=== PATIENT | male | born 1960 | race Caucasian/White ===

== ENCOUNTER 2017-02-14 13:29 | Inpatient (IN) ==
--- NOTE | 2017-02-13 22:03 | Discharge Summary ---
<CrystalLinda batistaEvon L - Last Filed: 02/15/17 12:15> Date of Encounter: 02/15/17 - Discharge Diagnosis (1) Arthritis of left hip Priority: Primary Status: Chronic (2) Status post total hip replacement, left Priority: Primary Status: Acute (3) HTN (hypertension) Priority: Secondary Status: Chronic Qualifiers: Hypertension type: essential hypertension Qualified Code(s): I10 - Essential (primary) hypertension (4) HLD (hyperlipidemia) Priority: Secondary Status: Chronic Qualifiers: Hyperlipidemia type: unspecified Qualified Code(s): E78.5 - Hyperlipidemia , unspecified (5) Obesity Priority: Secondary Status: Chronic Qualifiers: Obesity type: unspecified obesity type Obesity classification: unspecified obesity classification Serious obesity comorbidity presence: unspecified whether serious comorbidity present Qualified Code(s): E66.9 - Obesity, unspecified (6) Chronic pain Priority: Secondary Status: Chronic Comments: Will continue chronic pain medication - Oxycodone 10mg q 6 hours. Continue Tramadol 100mg daily. Added Mobic and Tylenol. Add Lidoderm patch Qualifiers: Chronic pain type: chronic pain syndrome Qualified Code(s): G89.4 - Chronic pain syndrome (7) History of infection Priority: Secondary Status: Chronic - Discharge Medications Prescriptions: Doxycycline 100 mg PO BID #14 capsule levoFLOXacin [Levofloxacin] 750 mg PO DAILY #7 tablet Home Medications: Aspirin Enteric Coated [Aspirin EC] 325 mg PO DAILY #21 tablet. 02/13/17 [Rx] Amlodipine Besylate 10 mg PO DAILY 02/14/17 [History] Lidocaine Patch [Lidoderm 5% patch] 1 each TP DAILY #60 adh..patch 02/14/17 [Rx] Lovastatin 10 mg PO HS 02/14/17 [History] Metoprolol [Lopressor] 50 mg PO BID 02/14/17 [History] Montelukast [Singulair] 10 mg PO HS 02/14/17 [History] Oxycodone HCl 10 mg PO Q6H PRN 02/14/17 [History] Quinapril/Hydrochlorothiazide [Accuretic 20-25 mg Tablet] 1 tab PO DAILY [History] Doxycycline 100 mg PO BID #14 capsule 02/15/17 [Rx] levoFLOXacin [Levofloxacin] 750 mg PO DAILY #7 tablet 02/15/17 [Rx] Allergies/Adverse Reactions: 3 Allergy/AdvReac Type Severity Reaction Status Date / Time optifoam dressing Allergy Blister Uncoded 02/14/17 14:05 Primary care physician: Amy Jean MD - Patient Status Disposition: Home, Self-Care Condition: Good - Discharge Instructions Follow Up With: Germán Beatty MD [Partnered Physician] - 03/16/17 3:40 pm Evon Spencer PAC [Physician Clinical Phlebotomist] - 02/24/17 8:00 am (Second followup (staple removal) 03/04/17 @ 8:45am) Additional Instructions: Discharge Instructions: Total Hip Replacement Please call [facility] ([phone]), your Primary Care Physician, or report to the Emergency Room if you have any of the following symptoms: Nausea, vomiting, fever greater that 101.5, swelling, chest pain, shortness of breath, increased pain/redness/drainage/odor for your incision site, numbness/ tingling, or any other concerning symptoms. ACTIVITY:Weight-bearing as tolerated for 8 weeks with hip dislocation precautions that physical therapy taught you. You may progress as tolerated under the guidance of your physical therapist. You do not need to sleep with a pillow between your legs. You can also seep on the operative side or on your stomach. MEDICATIONS: Upon discharge resume your home medications. Take all the medications as prescribed. Take a stool softener if taking narcotic pain medications. Stool softeners are only effective if you drink enough fluids. Drink 6-8 glass of water or fluids a day, unless this is not allowed for another health problem. Despite using stool softeners, if you haven't had a bowel movement in 3 days, please switch to a gentle laxative. Gentle laxatives are sold over the counter. You should have a bowel movement within 24 hours, if not call the office. You will be discharged from the hospital with a prescription for pain medication. You are encouraged to decrease the use of narcotic pain medication as tolerated. Should you require a refill, please call the office. [facility] prescribes narcotic pain medication for only 4-6 weeks after surgery. If you require pain medication beyond this time period, you may be referred to your Primary Care Physician or to the Pain Clinic for further evaluation. Plan ahead for refills on pain medication as many narcotics either need to be picked up at the office or mailed. It is best to call 48-72 hours in advance of needing a prescription refill so you don't run out of medication. To help control the post-operative pain, you may take NSAIDs (Aleve,Advil, Motrin, ibuprofen, naprosyn) or Tylenol as prescribed on the bottle in addition to the pain medication. ANTICOAGULATION (blood thinners): Continue your Aspirin, Lovenox or Coumadin as prescribed to help prevent a blood clot in the leg or in the lungs. As long as your incision remains dry and you tolerate the NSAIDs (Aleve, Advil, Motrin, Ibuprofen, Naprosyn), it is OK to use the NSAIDS while you are taking your anticoagulation medication. Should your incision start to drain, stop the NSAID and contact our office. Common symptoms of blood clot in the legs include: localized pain, swelling, calf tenderness, redness or discoloration of the skin. Blood clot in the lung symptoms include: shortness of breath, rapid pulse, sweating, and chest pain that worsens with deep breathing, coughing up blood, lightheadedness, feelings of anxiety. If you experience any of these symptoms notify your physician immediately, go to the emergency room, or if having trouble breathing, call 911. WOUND CARE: Leave the dressing on for 7 to 10days. You may change the dressing if it is saturated greater than 50%. Do not get the dressing wet at anytime. Wash your hands with antibacterial soap, rinse and dry prior to any wound care. If you have mikel the visiting nurse or rehab facility can remove the stapes 10-14 days after surgery and place steri-strips across the wound. Leave the steri-strips in place until they fall off on their own. You may let water from the shower run on top of the steri-strips. If you do not have a visiting nurse or rehab facility, you will need to return to the office at 10-14 days for the mikel to be removed. If you have itching or redness around the dressing call the office. FOLLOW-UP: Please follow up with your surgeon in the orthopedic clinic in 6 weeks from the day of surgery. If you have mikel that need to be removed, you will need to come back to the office in 10-14 days from the day of surgery. - Hospital Course Hospital course: Mr. Lee is a 56 year old male - Time Spent with Patient Total time spent providing and/or coordinating discharge services: <Germán Beatty Billy - Last Filed: 02/16/17 06:51> Date of Encounter: 02/16/17 Time of Encounter: 06:50 - Discharge Diagnosis (1) Morbid obesity with BMI of 45.0-49.9, adult Priority: Secondary Status: Chronic (2) Arthritis of left hip Priority: Primary Status: Chronic (3) Status post total hip replacement, left Priority: Primary Status: Acute (4) HTN (hypertension) Priority: Secondary Status: Chronic Qualifiers: Hypertension type: essential hypertension Qualified Code(s): I10 - Essential (primary) hypertension (5) HLD (hyperlipidemia) Priority: Secondary Status: Chronic Qualifiers: Hyperlipidemia type: unspecified Qualified Code(s): E78.5 - Hyperlipidemia , unspecified (6) Chronic pain Priority: Secondary Status: Chronic Qualifiers: Chronic pain type: chronic pain syndrome Qualified Code(s): G89.4 - Chronic pain syndrome (7) History of infection Priority: Secondary Status: Chronic Comments: Right total hip replacement Primary care physician: Amy Jean MD - Patient Status Functional capacity at discharge: uses cane/walker Overall status at discharge: patient is progressing back to baseline - Hospital Course Hospital course: Mr. Lee is a 56 year old male Status post left total hip replacement patient with history of infected right hip replacement on IV antibiotics while in the hospital. Discharge on by mouth antibiotics.The patient had an uneventful postoperative course. They received antibiotics and physical therapy and were discharged in stable condition. There will follow-up in the office in 2 weeks. - Time Spent with Patient Total time spent providing and/or coordinating discharge services:
[2017-02-14] MEDS ORDERED: Vancomycin 2,000 MG in D5% in Water 250 ML IVPB ONE (13:51)
[2017-02-14] MEDS ORDERED: Lidocaine -MPF 1% 2 ML VIAL ID ONE (13:51)
--- NOTE | 2017-02-14 13:53 | History & Physical Report ---
Date of Encounter: 02/14/17 Time of Encounter: 13:53 24 Hour HP Update - Instructions Instructions: If the History and Physical is less than 30 days old and was completed prior to A.M. admission and or procedure and has NOT been updated on calendar day of procedure please complete this update prior to performing procedure. - Update Patient reports changes in Medical Condition: No Changes in examination, assessment, or condition: No Changes in Medication: No Preop tests/diagnostics Reviewed: Yes Surgery Remains Indicated: Yes Consent for Planned Operative Procedure(s) Verified: Yes - Pre-Operative Checklist Preoperative Checklist Indicated: No Prophylactic Antibiotic Ordered: Yes Is VTE Prophylaxis Indicated?: Yes
[2017-02-14] MEDS ORDERED: Ringers Solution, Lactated 1,000 ML IVC SCH ×2 (14:00→21:10)
[2017-02-14] MEDS ORDERED: VANCOMYCIN IVPB ONE (14:15)
[2017-02-14] MEDS ORDERED: D10 IVPB ONE (14:15)
[2017-02-14] MEDS ORDERED: Vancomycin 2,000 MG in D5% in Water 500 ML IVPB ONE (14:15)
[2017-02-14] MEDS ORDERED: WATER IVPB ONE (14:15)
--- NOTE | 2017-02-14 15:52 | Anesthesia Evaluation PreOp ---
Date of Encounter: 02/14/17 Time of Encounter: 15:51 - Past History Planned Operation: Left Total Hip Arthroplasty Cardiac History: HTN, Hyperlipidemia Pulmonary History: Denies Any Significant HX, Former smoker (quit 10+ years ago) LEGAL ARBITRATOR History: Other (Neuropathic Pain) Other Medical History: Denies Any Significant HX, Other (Lumbar DJD) Anesthesia History: No Prior Anesthetic Complications, Past Anesthesia (Right hip I&D, R. THR, Multiple Right Hip Sx) Alcohol Use: rarely Drug use: none Medications and Allergies Aspirin Enteric Coated [Aspirin EC] 325 mg PO DAILY #21 tablet. 02/13/17 [Rx] Amlodipine Besylate [Amlodipine Besylate] 10 mg PO DAILY 02/14/17 [History] Lovastatin [Lovastatin] 10 mg PO HS 02/14/17 [History] Metoprolol [Lopressor] 50 mg PO BID 02/14/17 [History] Montelukast [Singulair] 10 mg PO HS 02/14/17 [History] Oxycodone HCl [Oxycodone HCl] 10 mg PO Q6H PRN 02/14/17 [History] Quinapril/Hydrochlorothiazide [Accuretic 20-25 mg Tablet] 1 tab PO DAILY [History] 3 Allergy/AdvReac Type Severity Reaction Status Date / Time optifoam dressing Allergy Blister Uncoded 02/14/17 14:05 - Meds/Allergy Pre-op Review Medications Reviewed: Yes Allergies Reviewed: Yes Beta Blockers on Current Med List: Yes If Beta Blockers taken, Date/Time (Last Dose taken): 08:30 02/14/17 Anesthesia Results - Labs Laboratory Tests 01/25/17 01/25/17 01/25/17 10:03 10:03 10:03 WBC 7.5 Hgb 13.7 Hct 41.5 Plt Count 286 INR 1.2 Sodium 139 Potassium 3.7 Chloride 101 Carbon Dioxide 27 BUN 8 Creatinine 0.80 - Imaging EKG: image reviewed (SB) Anesthesia Exam Height: 5'9'' Weight: 305# NPO (# of Hours): > 8 hrs Pain Scale: 0 Pain Scale Used: Numeric (1 - 10) - HEENT Pupil (Motor): Pupils equal, EOMI Mallampati: III Teeth: Normal Oral Opening: Greater than 3 - LEGAL ARBITRATOR LOC: Oriented LEGAL ARBITRATOR Motor: Normal RUE, Normal LUE, Normal RLE, Normal LLE, Normal Face LEGAL ARBITRATOR Sensory: Normal: RUE, LUE, RLE, LLE, Face - Cardiac Rhythm: Regular Murmur: None JVD: No Carotid Bruit: No - Pulmonary Breath Sounds: bilateral Clear Respiratory Effort: Symmetrical Anesthesia Assess/Plan ASA Score: 3 Modified Burton Scale for Level of Consciousness: Cooperative, oriented, and tranquil Anesthetic Plan: General, Regional (REFUSED Nerve Block) Monitoring Plan: Standard Monitors Recovery Plan: PACU
[2017-02-14] MEDS ORDERED: Acetaminophen IV 1,000 MG/100 ML INFUS..BTL ONE (16:39)
[2017-02-14] MEDS ORDERED: *HR* FentaNYL (PF) 100 MCG/2 ML VIAL ONE (16:41)
[2017-02-14] MEDS ORDERED: *HR* Propofol 200 MG/20 ML VIAL IVP ONE ×2 (16:41→16:44)
[2017-02-14] MEDS ORDERED: *HR* Midazolam HCl 2 MG/2 ML VIAL ONE (16:41)
[2017-02-14] MEDS ORDERED: Lidocaine -MPF 2% 2 ML VIAL ONE (16:43)
[2017-02-14] MEDS ORDERED: *HR* Succinylcholine 200 MG/10 ML VIAL IVP ONE (16:45)
[2017-02-14] MEDS ORDERED: Lidocaine -MPF 4% 5 ML AMPUL ONE (16:53)
[2017-02-14] MEDS ORDERED: *HR* Magnesium Sulfate 1 GM/2 ML VIAL ONE (16:54)
[2017-02-14] MEDS ORDERED: Ondansetron 4 MG/2 ML VIAL ONE (17:19)
[2017-02-14] MEDS ORDERED: Dexamethasone 4 MG/ML VIAL ONE (17:19)
[2017-02-14] MEDS ORDERED: EPHEDrine 50 MG/ML VIAL ONE (17:23)
[2017-02-14] MEDS ORDERED: *HR* Enoxaparin 30 MG/0.3 ML SYRINGE SQ SCH (18:00)
[2017-02-14] MEDS ORDERED: *HR* Promethazine 25 MG/ML VIAL IVP PRN (18:04)
--- NOTE | 2017-02-14 18:09 | Orthopedic Operative Note ---
Date of procedure: 02/14/17 Pre-op diagnosis: Left hip arthritis Post-op diagnosis: same Procedure: Procedure: Left Total Hip Replacment Estimated blood loss: 500 cc Hardware: Metal and polyethylene replacement. Biomet DM Cup:60 G7 fin cup Femoral size13 echo full profile lateralized stem Head: 9 head with Mercedes Procedural Notes: Grade 4 arthritic changes femoral head acetabular socket. Operative procedure: The patient was brought to the operating room and placed on the operating room table. After general anesthesia was administered the patient was placed in the lateral decubitus position with the operative leg up. All pressure points were padded appropriately and the head was stabilized in the neutral position. The operative extremity was prepped and draped in the sterile surgical fashion patient received IV antibiotic prior to skin incision. A standard posterior approach is made to the operative hip, the incision was made through the skin and subcutaneous tissue hemostasis was obtained with Bovie cautery. Using careful sharp dissection the fascia was identified and incised exposing the external rotators. The external rotators were released off the greater trochanter and tagged with #2 FiberWire suture. The capsule was T'd open and the hip was brought into internal rotation. Patient noted to have grade 4 arthritic changes femoral head. The femoral neck cut was made at the appropriate level. An anterior capsulotomy was performed for the anterior retractor. Soft tissues removed from the acetabulum. Patient noted to have grade 4 arthritic changes acetabulum. Acetabulum was first reamed medially, and then reamed in 15 degrees of anteversion and 45 degrees off the horizontal. It was reamed up to the appropriate size 60. The appropriate-sized 60 acetabular cup was impacted in place in 15 degrees of anteversion and 45 degrees off the horizontal. This had good fit and fixation. The hip was brought back in to internal rotation and prepared with the box icer followed by the canal finder followed by broaching process in 20 degrees anteversion. It was broached up to the appropriate size 13. The femoral implant was impacted in place in 20 degrees of anteversion. Trial reduction found the hip to be stable with 9 head and Mercedes. The trials were removed and the real implants were impacted in place. The hip was reduced, patient had apparent equal leg lengths. The hip had excellent stability with forward flexion to 90 degrees adduction of 30 degrees and internal rotation of 60 degrees. The hip had no shuck. The hips after 2 minutes with a Betadine saline solution. It was irrigated out with 2 L of pulse irrigation. PA closed the knee. Fascia was closed with a running #2 PDS suture. The deep tissue was irrigated and closed deep with #1 PDS suture superficially with 0 PDS suture and skin was closed with Dermabond and skin mikel. The patient was placed in a sterile dressing and abduction pillow. The patient was extubated and transferred to the recovery room in stable condition. Anesthesia: GETA Surgeon: Germán Beatty Condition: stable Disposition: PACU
[2017-02-14] MEDS ORDERED: Ketorolac 30 MG/ML VIAL ONE (18:28)
[2017-02-14] MEDS ORDERED: *HR* Morphine 10 MG/ML VIAL ONE (18:29)
[2017-02-14] MEDS ORDERED: *HR* HYDROmorphone 2 MG/ML SYRINGE ONE (18:38)
[2017-02-14] MEDS: *HR* HYDROmorphone (PF) 1 MG/ML SYRINGE IVP PRN ×5 (19:02→22:36)
[2017-02-14 19:16] LABS: Hemoglobin 13.2 g/dL (12.9-16.9)
--- NOTE | 2017-02-14 19:51 | Anesthesia Evaluation Post Op ---
Date of Encounter: 02/14/17 Time of Encounter: 19:50 - Vital Signs Vital Signs: Vital Signs/O2 Sat/Glucose, Most Current Temp Pulse Resp BP Pulse Ox 02/14/17 19:31 97.5 F L 78 20 140/91 93 02/14/17 19:21 97.7 F 79 20 150/100 94 02/14/17 19:11 84 20 144/98 96 02/14/17 19:01 84 20 139/99 94 02/14/17 18:51 87 20 125/92 94 02/14/17 18:41 98.6 F 84 18 133/84 94 - Lungs Lungs: Clear Ascult./Percussion - Airway Airway: Non-obstructed - Cardiovascular Regular Rate - Mental Status Mental Status: Alert & Oriented, Answers Appropriately - Pain Pain Scale: 5 - Nausea Vomiting Nausea Vomiting: Not Present - Hydration Hydration: Ice chips - Discharge PostOp Status: Transfer Patient to floor
[2017-02-14] MEDS ORDERED: Naloxone 0.4 MG/ML INJ IVP PRN (21:10)
[2017-02-14] MEDS ORDERED: Sennosides 8.6 MG TABLET PO PRN (21:10)
[2017-02-14] MEDS ORDERED: *HR* OxyCODONE Immed Rel 5 MG TABLET PO PRN (21:10)
[2017-02-14] MEDS ORDERED: MOM Conc 10 ML UD.LIQ PO PRN (21:10)
[2017-02-14] MEDS ORDERED: Temazepam 15 MG CAPSULE PO PRN (21:10)
[2017-02-14] MEDS ORDERED: Ondansetron 4 MG/2 ML VIAL IVP PRN (21:10)
[2017-02-14] MEDS: Ascorbic Acid 500 MG TABLET PO SCH (22:42)
[2017-02-15] MEDS: *HR* OxyCODONE Immed Rel 5 MG TABLET PO PRN ×4 (05:38→20:46)
[2017-02-15] MEDS: *HR* Enoxaparin 30 MG/0.3 ML SYRINGE SQ SCH ×2 (05:38→18:15)
[2017-02-15] MEDS: Vancomycin 2,000 MG in D5% in Water 500 ML IVPB SCH ×2 (06:44→18:15)
--- NOTE | 2017-02-15 06:53 | Orthopedics Progress Note ---
Date of Encounter: 02/15/17 Time of Encounter: 06:53 - Assessment and Plan (1) Morbid obesity with BMI of 45.0-49.9, adult Current Visit: Yes Status: Chronic (2) Arthritis of left hip Current Visit: Yes Status: Chronic (3) Status post total hip replacement, left Current Visit: Yes Status: Acute (4) HTN (hypertension) Current Visit: Yes Status: Chronic Qualifiers: Hypertension type: essential hypertension Qualified Code(s): I10 - Essential (primary) hypertension (5) HLD (hyperlipidemia) Current Visit: Yes Status: Chronic Qualifiers: Hyperlipidemia type: unspecified Qualified Code(s): E78.5 - Hyperlipidemia , unspecified (6) Chronic pain Current Visit: Yes Status: Chronic Qualifiers: Chronic pain type: chronic pain syndrome Qualified Code(s): G89.4 - Chronic pain syndrome (7) History of infection Current Visit: Yes Status: Chronic Subjective Interval history: Patient was seen this morning doing well without complaints. Afebrile vital signs stable. Operative extremity: Neurovascularly intact Dressing clean dry and intact Calves nontender Assessment and plan: Continue with postoperative care Objective Vital signs: Vital Signs Temp Pulse Resp BP Pulse Ox 02/15/17 06:36 98.8 F 86 96 113/75 02/15/17 05:18 98.6 F 108 14 122/75 96 02/15/17 00:06 98.5 F 110 17 106/71 95 02/14/17 22:55 98.3 F 110 18 114/75 95 02/14/17 22:39 98.1 F 100 17 109/71 95 02/14/17 21:30 98.7 F 93 14 119/78 95 02/14/17 20:22 82 20 136/80 94 02/14/17 20:12 75 18 135/85 97 02/14/17 20:02 97.5 F L 74 18 134/81 100 02/14/17 19:51 78 20 137/88 94 02/14/17 19:41 76 20 138/83 95 02/14/17 19:31 97.5 F L 78 20 140/91 93 02/14/17 19:21 97.7 F 79 20 150/100 94 02/14/17 19:11 84 20 144/98 96 02/14/17 19:01 84 20 139/99 94 02/14/17 18:51 87 20 125/92 94 02/14/17 18:41 98.6 F 84 18 133/84 94 Intake and Output 02/14/17 02/14/17 02/15/17 15:59 23:59 07:59 Intake Total 100 / 100 800 / 800 Output Total 500 / 500 1550 / 1550 Balance -400 / -400 -750 / -750 Intake: Oral 100 / 100 800 / 800 Output: Urine 0 / 0 1550 / 1550 Estimated Blood Loss 500 / 500 Other: Weight 138.346 kg 146.964 kg Patient Weight 02/15/17 23:59 Weight 146.964 kg - Labs CBC & BMP: 02/14/17 19:05 - VTE Documentation of Mechanical Device: Venous foot pump, device Consult Discharge Plan - Plan Referrals: Amy Jean MD [Primary Care Provider] -
[2017-02-15] MEDS ORDERED: Vancomycin 1,000 MG VIAL IVPB SCH (07:00)
[2017-02-15 08:20] LABS: Hematocrit 35.8 % (37.5-50.1); Hemoglobin 12.1 g/dL (12.9-16.9)
[2017-02-15] MEDS: Ascorbic Acid 500 MG TABLET PO SCH ×2 (08:29→18:15)
[2017-02-15] MEDS: Multivit/Ca/Min/Fe/FA 1 TAB TABLET PO SCH (08:29)
[2017-02-15] MEDS: amLODIPine 5 MG TABLET PO SCH (08:29)
[2017-02-15] MEDS: hydroCHLOROthiazide 25 MG TABLET PO SCH (08:30)
[2017-02-15 08:39] LABS: BUN/Creatinine Ratio 9 (6-26); Blood Urea Nitrogen 8 mg/dL (8-26); Calcium 9.1 mg/dL (8.6-10.8); Carbon Dioxide 22 mEq/L (19-29); Chloride 100 mEq/L (98-109); Glucose 236 mg/dL (70-99); Osmolality,Calculated 286 (280-300); Potassium 3.6 mEq/L (3.5-4.5); Sodium 135 mEq/L (136-145); eGFR For African Americans > 60 (> 60); eGFR For Non-African Americans > 60 (> 60)
--- NOTE | 2017-02-15 12:15 | Event Note ---
Date of Encounter: 02/15/17 Time of Encounter: 12:13 PCR - Left THR 02/15/17 - POD#1 Patient seen at bedside. Cormorbidities: Obesity, HTN, HLD, Chronic pain, History of Right THR/infection Labs: stable Pain control: adequate - Chronic pain *No pain meds at discharge. Oxycodone 10 q 6 hours Tramadol 100mg daily Participating in PT. All questions and concerns addressed. Educated on use of incentive spirometer, ambulation, and hydration. Patient educated on post-operative restrictions and care. Addressed: Pain - No pain meds at discharge; Added Mobic 15mg daily, with Lidoderm patch - printed and ERx'ed Post-operative prophylactic antibiotics: Levaquin 750mg daily, Doxycycline 100mg BID - 7 days post-op per D/C plan:. Home - 02/16/17.
[2017-02-16] MEDS: *HR* OxyCODONE Immed Rel 5 MG TABLET PO PRN ×3 (00:38→11:16)
[2017-02-16] MEDS: *HR* HYDROmorphone (PF) 1 MG/ML SYRINGE IVP PRN ×2 (01:59→09:29)
[2017-02-16] MEDS: *HR* Enoxaparin 30 MG/0.3 ML SYRINGE SQ SCH (06:01)
--- NOTE | 2017-02-16 06:51 | Orthopedics Progress Note ---
Date of Encounter: 02/16/17 Time of Encounter: 06:51 - Assessment and Plan (1) Morbid obesity with BMI of 45.0-49.9, adult Current Visit: Yes Status: Chronic (2) Arthritis of left hip Current Visit: Yes Status: Chronic (3) Status post total hip replacement, left Current Visit: Yes Status: Acute (4) HTN (hypertension) Current Visit: Yes Status: Chronic Qualifiers: Hypertension type: essential hypertension Qualified Code(s): I10 - Essential (primary) hypertension (5) HLD (hyperlipidemia) Current Visit: Yes Status: Chronic Qualifiers: Hyperlipidemia type: unspecified Qualified Code(s): E78.5 - Hyperlipidemia , unspecified (6) Chronic pain Current Visit: Yes Status: Chronic Qualifiers: Chronic pain type: chronic pain syndrome Qualified Code(s): G89.4 - Chronic pain syndrome (7) History of infection Current Visit: Yes Status: Chronic Subjective Interval history: Patient was seen this morning doing well without complaints. Afebrile vital signs stable. Operative extremity: Neurovascularly intact Dressing clean dry and intact Calves nontender Assessment and plan: Continue with postoperative care Hematocrit 35 discharged today Objective Vital signs: Vital Signs Temp Pulse Resp BP Pulse Ox 02/16/17 06:32 98.0 F 74 18 116/73 98 02/16/17 00:56 98.6 F 76 18 114/77 96 02/15/17 20:30 98.5 F 78 17 116/74 98 02/15/17 15:21 98.3 F 67 18 98/61 98 02/15/17 11:23 98.0 F 77 20 122/76 97 Intake and Output 02/15/17 02/15/17 02/16/17 15:59 23:59 07:59 Intake Total 610 / 610 700 / 700 800 / 800 Output Total 900 / 900 1275 / 1275 1525 / 1525 Balance -290 / -290 -575 / -575 -725 / -725 Intake: IV Fluids 250 / 250 500 / 500 Vancocin 2,000 MG In Dextrose 5 250 / 250 500 / 500 % 500 ML @ 250 mls/hr IVPB Q12H PATY Rx#:[id number] Oral 360 / 360 200 / 200 800 / 800 Output: Urine 900 / 900 1275 / 1275 1525 / 1525 Other: Meal Lunch Percent of Meal Consumed 90% - Labs CBC & BMP: 02/15/17 07:40 02/15/17 07:40 Labs: Abnormal lab results Hgb 12.1 g/dL (12.9-16.9) L 02/15/17 07:40 Hct 35.8 % (37.5-50.1) L 02/15/17 07:40 Sodium 135 mEq/L (136-145) L 02/15/17 07:40 Glucose 236 mg/dL (70-99) H 02/15/17 07:40 - VTE Documentation of Mechanical Device: Venous foot pump, device Consult Discharge Plan - Plan Additional Instructions: Discharge Instructions: Total Hip Replacement Please call [facility] ([phone]), your Primary Care Physician, or report to the Emergency Room if you have any of the following symptoms: Nausea, vomiting, fever greater that 101.5, swelling, chest pain, shortness of breath, increased pain/redness/drainage/odor for your incision site, numbness/ tingling, or any other concerning symptoms. ACTIVITY:Weight-bearing as tolerated for 8 weeks with hip dislocation precautions that physical therapy taught you. You may progress as tolerated under the guidance of your physical therapist. You do not need to sleep with a pillow between your legs. You can also seep on the operative side or on your stomach. MEDICATIONS: Upon discharge resume your home medications. Take all the medications as prescribed. Take a stool softener if taking narcotic pain medications. Stool softeners are only effective if you drink enough fluids. Drink 6-8 glass of water or fluids a day, unless this is not allowed for another health problem. Despite using stool softeners, if you haven't had a bowel movement in 3 days, please switch to a gentle laxative. Gentle laxatives are sold over the counter. You should have a bowel movement within 24 hours, if not call the office. You will be discharged from the hospital with a prescription for pain medication. You are encouraged to decrease the use of narcotic pain medication as tolerated. Should you require a refill, please call the office. [facility] prescribes narcotic pain medication for only 4-6 weeks after surgery. If you require pain medication beyond this time period, you may be referred to your Primary Care Physician or to the Pain Clinic for further evaluation. Plan ahead for refills on pain medication as many narcotics either need to be picked up at the office or mailed. It is best to call 48-72 hours in advance of needing a prescription refill so you don't run out of medication. To help control the post-operative pain, you may take NSAIDs (Aleve,Advil, Motrin, ibuprofen, naprosyn) or Tylenol as prescribed on the bottle in addition to the pain medication. ANTICOAGULATION (blood thinners): Continue your Aspirin, Lovenox or Coumadin as prescribed to help prevent a blood clot in the leg or in the lungs. As long as your incision remains dry and you tolerate the NSAIDs (Aleve, Advil, Motrin, Ibuprofen, Naprosyn), it is OK to use the NSAIDS while you are taking your anticoagulation medication. Should your incision start to drain, stop the NSAID and contact our office. Common symptoms of blood clot in the legs include: localized pain, swelling, calf tenderness, redness or discoloration of the skin. Blood clot in the lung symptoms include: shortness of breath, rapid pulse, sweating, and chest pain that worsens with deep breathing, coughing up blood, lightheadedness, feelings of anxiety. If you experience any of these symptoms notify your physician immediately, go to the emergency room, or if having trouble breathing, call 911. WOUND CARE: Leave the dressing on for 7 to 10days. You may change the dressing if it is saturated greater than 50%. Do not get the dressing wet at anytime. Wash your hands with antibacterial soap, rinse and dry prior to any wound care. If you have mikel the visiting nurse or rehab facility can remove the stapes 10-14 days after surgery and place steri-strips across the wound. Leave the steri-strips in place until they fall off on their own. You may let water from the shower run on top of the steri-strips. If you do not have a visiting nurse or rehab facility, you will need to return to the office at 10-14 days for the mikel to be removed. If you have itching or redness around the dressing call the office. FOLLOW-UP: Please follow up with your surgeon in the orthopedic clinic in 6 weeks from the day of surgery. If you have mikel that need to be removed, you will need to come back to the office in 10-14 days from the day of surgery. Referrals: Germán Beatty MD [Partnered Physician] - 03/16/17 3:40 pm Evon Spencer PAC [Physician Portfolio Manager] - 02/24/17 8:00 am (Second followup (staple removal) 03/04/17 @ 8:45am) Prescriptions: Doxycycline 100 mg PO BID #14 capsule levoFLOXacin [Levofloxacin] 750 mg PO DAILY #7 tablet
[2017-02-16 06:55] LABS: BUN/Creatinine Ratio 11 (6-26); Blood Urea Nitrogen 8 mg/dL (8-26); Calcium 9.1 mg/dL (8.6-10.8); Carbon Dioxide 26 mEq/L (19-29); Chloride 100 mEq/L (98-109); Glucose 145 mg/dL (70-99); Osmolality,Calculated 281 (280-300); Potassium 3.5 mEq/L (3.5-4.5); Sodium 135 mEq/L (136-145); eGFR For African Americans > 60 (> 60); eGFR For Non-African Americans > 60 (> 60)
[2017-02-16 07:05] LABS: Hematocrit 34.8 % (37.5-50.1); Hemoglobin 11.9 g/dL (12.9-16.9)
[2017-02-16] MEDS: Vancomycin 2,000 MG in D5% in Water 500 ML IVPB SCH (07:24)
[2017-02-16] MEDS: Multivit/Ca/Min/Fe/FA 1 TAB TABLET PO SCH (09:24)
[2017-02-16] MEDS: hydroCHLOROthiazide 25 MG TABLET PO SCH (09:24)
[2017-02-16] MEDS: Ascorbic Acid 500 MG TABLET PO SCH (09:24)
[2017-02-16] MEDS: amLODIPine 5 MG TABLET PO SCH (09:24)
[2017-02-16 11:29] VITALS: BP 105/69
--- NOTE | 2017-02-16 11:58 | Event Note ---
Date of Encounter: 02/16/17 Time of Encounter: 13:11 PCR - Left THR 02/15/17 - POD#2 Patient seen at bedside. Cormorbidities: Obesity, HTN, HLD, Chronic pain, History of Right THR/infection Labs: stable Pain control: adequate - Chronic pain *No pain meds at discharge. Oxycodone 10 q 6 hours Tramadol 100mg daily Participating in PT. All questions and concerns addressed. Educated on use of incentive spirometer, ambulation, and hydration. Patient educated on post-operative restrictions and care. Addressed: Pain - No pain meds at discharge - continue chronic home meds; Added Mobic 15mg daily, with Lidoderm patch - printed and ERx'ed Post-operative prophylactic antibiotics: Levaquin 750mg daily, Doxycycline 100mg BID - 7 days post-op per - Patient is NOT getting PICC line. D/C plan:. Home - 02/16/17
[2017-02-16] MEDS ORDERED: Aminoglycoside Consult 1 EACH MC ONE (14:05)
--- NOTE | 2017-02-17 08:26 | Physician Discharge Referral ---
Home Health/Hosp Referral Info Transfer to: Home Health Attending Provider: Dr. Germán Beatty - Diagnosis (1) Status post total hip replacement, left Priority: Primary Status: Acute (2) Arthritis of left hip Priority: Secondary Status: Chronic (3) Chronic pain Priority: Secondary (Patient to continue his chronic pain medications post- operatively) Status: Chronic (4) HLD (hyperlipidemia) Priority: Secondary Status: Chronic (5) HTN (hypertension) Priority: Secondary Status: Chronic (6) History of infection Priority: Secondary (Patient to take Doxycycline and Levaquin) Status: Chronic (7) Obesity Priority: Secondary Status: Chronic - Respiratory Orders Smoking Cessation: Smoking cessation has been advised. For more information, call the [employer] Tobacco Quit Line at 0-650-QGCW-NOW. - Dressing/Wound Care Site: left hip Type of Dressing/Treatments w/Frequency: Opsite dressing, leave intact until first post-operative visit. If dressing becomes >50% saturated, contact office, remove dressing and place appropriate dressing in its place. Do not allow for dressing to get wet. Leola in place, plan to remove at post-operative day #14-16 - Diet/Nutrition Diet/Nutrition Orders: Regular - Activity Activity Orders: Up ad armando, Ambulate, Chair, Walker Activity: List: Total Hip replacement Precautions Apply cold therapy 3-6x/day for 20 minutes at a time. Encourage ambulation throughout the day and incentive spirometer 10x/hour. Elevate affected extremity as tolerated. Brace: Wear hip abduction pillow when laying/sleeping - Services Needed Following services are medically necessary services: Nursing, Home Health Aide, Physical Therapy, Occupational Therapy - Transfer Medications Prescriptions: Doxycycline 100 mg PO BID #14 capsule levoFLOXacin [Levofloxacin] 750 mg PO DAILY #7 tablet Home Medications: Aspirin Enteric Coated [Aspirin EC] 325 mg PO DAILY #21 tablet. 02/13/17 [Rx] Amlodipine Besylate 10 mg PO DAILY 02/14/17 [History] Lidocaine Patch [Lidoderm 5% patch] 1 each TP DAILY #60 adh..patch 02/14/17 [Rx] Lovastatin 10 mg PO HS 02/14/17 [History] Metoprolol [Lopressor] 50 mg PO BID 02/14/17 [History] Montelukast [Singulair] 10 mg PO HS 02/14/17 [History] Oxycodone HCl 10 mg PO Q6H PRN 02/14/17 [History] Quinapril/Hydrochlorothiazide [Accuretic 20-25 mg Tablet] 1 tab PO DAILY [History] Doxycycline 100 mg PO BID #14 capsule 02/15/17 [Rx] levoFLOXacin [Levofloxacin] 750 mg PO DAILY #7 tablet 02/15/17 [Rx] Allergies/Adverse Reactions: 3 Allergy/AdvReac Type Severity Reaction Status Date / Time optifoam dressing Allergy Blister Uncoded 02/14/17 14:05 Certification: Further, I certify that my clinical findings support that this patient is homebound (i.e. absences from home require considerable and taxing effort and are for medical reasons or mu-ism services or infrequently or short duration when for other reasons) because: Homebound Reason: Post-surgery restriction and or conditions limit ability to leave home Attestation: My signature below is to certify that this patient is under my care and that I, or nurse practitioner, or a physician registrar assistant working with me, has a face-to- face encounter with this patient.
== END 2017-02-16 14:06 | disposition home or self-care (01) | DRG 470 ==
LOC: SAMDAY 13:29 → 3NENU 21:09
PROVIDERS: ADMIT Orthopaedic Surgery; ATTEND Orthopaedic Surgery